=== PATIENT | female | born 1990 | race Caucasian/White ===

== ENCOUNTER 2017-03-03 20:57 | Emergency (ER) | payer MEDICAID, OTHER ==
[2017-03-03 21:09] VITALS: BP 111/92
--- NOTE | 2017-03-03 21:15 | EDM.PDOC ---
ED HPI Trauma - General Chief Complaint: Lower Extremity Injury/Pain Stated Complaint: R ANKLE INJURY Time Seen by Provider: 03/03/17 21:05 Source: Reports: Patient History Limitations: Reports: No limitations - History of Present Illness INITIAL COMMENTS - FREE TEXT/NARRATIVE: Patient presents for evaluation and treatment of an injury to the right ankle. Patient reports that the injury occurred about one hour prior to arrival in the ER. She states that she was at [facility]. This was her first practice. She was on [employer] when she tripped forward twisting her ankle inward. She reports since injury she has been unable to bear weight on the ankle. She also has some numbness and tingling to the dorsal aspect of her right foot. Swelling to the lateral aspect of her right ankle. Patient reports pain along the lateral aspect of her right ankle. Patient was wearing a helmet, no head trauma. Method of Injury: fall Pain/Injury Location: Reports: upper extremity, right Consciousness: Reports: no loss of consciousness, remembers incident Allergies/ADRs: Allergies morphine Allergy (Verified 03/03/17 21:09) Burning Review of Systems - Review of Systems Review Of Systems: See Below Musculoskeletal: Reports: joint pain (right ankle), joint swelling (right ankle) Skin: Denies: bruising, erythema, wound Neurological: Reports: Numbness (right foot), Tingling (right foot), Difficulty Walking (due to pain) Trauma Exam - Physical Exam Exam: See Below Exam Limited By: No limitations General Appearance: Reports: alert, WD/WN, no apparent distress Respiratory Exam: Reports: no respiratory distress Cardiovascular: Reports: normal peripheral pulses (2+ dorsalis pedis and posterior tibialis pulses bilterally), regular rate, rhythm Extremities: Reports: bony-point tenderness (lateral proximal and distal right malleolus; medial distal right malleolus), joint effusion (right lateral distal malleolus), pain with movement (pain wit dorsiflexion, plantarflexion; unable to invert and ministerio due to pain) Neurologic: Reports: alert Skin: Reports: Normal color, Warm/dry. Denies: Ecchymosis Course - Vital Signs Last Recorded V/S: Last Vital Signs Temp 36.1 C 03/03/17 21:04 Pulse 90 03/03/17 21:04 Resp 16 03/03/17 21:04 BP 111/92 H 03/03/17 21:04 Pulse Ox 99 03/03/17 21:04 - Orders/Labs/Meds Orders: Active Orders 24 hr Category Date Time Status Ankle Min 3V Rt [CR] Stat Exams 03/03/17 21:15 Taken - Radiology Interpretation Free Text/Narrative:: xray of the right ankle reviewed by myself and Dr. Hughes. No acute fractures appreciated. - Re-Assessments/Exams Free Text/Narrative Re-Assessment/Exam: 03/03/17 21:46 I reviewed the xray with the patient. Will treat with crutches and an LUIS wrap for swelling. Discharge instructions as documented. Departure - Departure Time of Disposition: 21:49 Disposition: Home, Self-Care 01 Condition: fair Clinical Impression: Ankle sprain Qualifiers: Encounter type: initial encounter Involved ligament of ankle: unspecified ligament Laterality: right Qualified Code(s): S93.401A - Sprain of unspecified ligament of right ankle, initial encounter Instructions: Ankle Sprain, [id number] Referrals: Lashaun Hammer PA-C [Primary Care Provider] - Forms: ED Department Discharge Additional Instructions: Use crutches and the Luis wrap for swelling. Elevate the ankle as often needs to able to. Ice the ankle 3 or 4 times a day for 15-20 minutes. [id number] Tylenol or Motrin as needed for pain relief. Follow up with your primary care provider in 10 days. Please return to the ER should your symptoms change or worsen. - My Orders Last 24 Hours: My Active Orders 03/03/17 21:15 Ankle Min 3V Rt [CR] Stat - Assessment/Plan Last 24 Hours: My Active Orders 03/03/17 21:15 Ankle Min 3V Rt [CR] Stat
--- NOTE | 2017-03-04 11:45 | CR ---
Right ankle: Four views of the right ankle were obtained. Comparison: No previous study. Ankle mortise is symmetric. No fracture, dislocation or other bony abnormality is seen. Soft tissue swelling is identified. Impression: 1. Soft tissue swelling. No bony abnormality is identified on right ankle exam. Diagnostic code #2
== END 2017-03-03 21:58 | disposition home or self-care (01) ==
LOC: JD.ED 20:57
DX: S93.401A Sprain of unspecified ligament of right ankle, initial encounter (principal); Z88.5 Allergy status to narcotic agent; W22.8XXA Striking against or struck by other objects, initial encounter; Y93.51 Activity, roller skating (inline) and skateboarding
CPT/HCPCS: 73610-26-RT; 73610-RT; 99282; 99283